=== PATIENT | female | born 1940 | race Caucasian/White ===

== ENCOUNTER → 2016-10-15 | Outpatient (CLI) | payer OTHER, BC ==
[2016-10-22 02:31] LABS: ANTI-STRIATED MUSCLE NEGATIVE (NEGATIVE); RECEPTOR BINDING AB <0.30 nmol/L
== END | disposition home or self-care (01) ==
LOC: C.LABBC 10:43
PROVIDERS: ATTEND Ophthalmology
DX: H02.402 Unspecified ptosis of left eyelid (principal)

== ENCOUNTER 2023-05-16 08:51 | Inpatient (IN) ==
--- NOTE | 2023-05-16 09:14 | Emergency Department Note ---
Impression & Plan SOB (shortness of breath), Tachycardia, Pneumonia, Failure of outpatient treatment ED Provider Note NAME: МАРИНА BAKER AGE: 82 SEX: F : 1940 ARRIVES VIA: Walk-In INFORMANT: [Patient][son] ED PROVIDER(S): [Alexis Madsen MD] CHIEF COMPLAINT: Flulike symptoms HISTORY OF PRESENT ILLNESS: The patient is a the patient is an 82-year-old female presents to the ER with around 10 days of symptoms. She began having chills, sneezing and cough. Midweek last week, several days ago, she developed an increased heart rate, some pounding in her ears, a temperature and a colored sputum. This morning, she vomited 1 time. The patient's son believes his mother seems short of breath with any exertion and at times somewhat confused. Patient did see her doctors office, she was prescribed Augmentin, she started taking this 3 days ago, she has not noticed any difference in her symptoms. PMHx/PSHx/Social Hx: See Below PHYSICAL EXAM: GENERAL: Patient is in no acute distress. HEENT: No acute trauma, normocephalic atraumatic, mucous membranes moist, no nasal congestion. NECK: No stridor, no adenopathy, no meningismus, trachea is midline. LUNGS: Occasional crackles at both bases, primarily on the right. No wheezing or respiratory distress. HEART: Subtle systolic murmur, mildly tachycardic, regular rhythm. ABDOMEN: Soft, nontender, no peritonitis. EXTREMITIES: No cyanosis, full range of motion of all the joints without pain or difficulty. Mild bilateral pedal edema. NEUROLOGIC: Oriented x 3, no acute motor or sensory deficits, no focal weakness. SKIN: No jaundice, no diaphoresis. DIFFERENTIAL DIAGNOSIS: Bronchitis or pneumonia, bacteremia or sepsis, viral illness, anemia, cardiac ischemia or dysrhythmia, among others. EMERGENCY DEPARTMENT PROCEDURES: MEDICAL DECISION MAKING: There is a moderate leukocytosis, this would be consistent with infection. There is a normal hemoglobin. Platelet count slightly elevated. No coagulopathy. No renal failure. Magnesium was low at 1.6. No concerning liver enzyme elevation. ECG showed a sinus tachycardia, no ischemia. Cardiac enzyme testing x 1 is not consistent with acute cardiac injury. COVID, influenza and RSV test were negative. Chest x-ray showed a potential right middle lung/lower lung infiltrate. No pneumothorax. Chest CT did not show PE, a left lingular pneumonia was seen. The patient received IV saline, 1 L in total. She was given IV magnesium and IV ceftriaxone. The patient's heart rate has improved. She seems more comfortable. I spoke with the patient about her findings, I spoke with her son. Given the leukocytosis, the failed outpatient management, her tachycardia and dyspnea, given her increased confusion, a hospital stay was felt warranted. I spoke with case management, the on-call hospitalist was consulted. Prior/Outside records/notes reviewed: None. ECG per my interpretation: Indication was shortness of breath. The ECG shows a sinus tachycardia with a rate of 113. There is some nonspecific ST change and some poor R wave progression. There is no ST elevation, no PVCs. The QTc is 441. Continuous Cardiac Monitoring per my interpretation: An order was placed for continuous cardiac monitoring. The monitor shows a rate of 119 with sinus tachycardia. Imaging/x-ray results per my interpretation: Chest x-ray shows scoliosis and a potential right mid to lower lung infiltrate. No pneumothorax or CHF. Chronic Medical/Social conditions affecting care: Advanced age. Care/Management discussed with: Case management, the on-call hospitalist. Level of care consideration(s): After review of the information above and other included data: --I believe the patient requires escalation of care to admission DISPOSITION: Admission Past Med/Surg History Medical History HTN (hypertension) Surgical History H/O thyroidectomy Social History Smoking Status: Never smoker Feels Safe at Home: Yes Allergies Allergies Allergy/AdvReac Type Severity Reaction Status Date / Time No Known Allergies Allergy Unverified 04/17/13 07:14 Results & Data (ED) Vital Signs Vital Signs - 24 hr 05/16/23 08:55 05/16/23 09:07 05/16/23 09:08 Temperature 36.5 C Temperature Source Temporal Artery Scan Pulse Rate 118 H 115 H 117 H Pulse Rate [Apical] Pulse Rate from SpO2 Sensor 115 H Respiratory Rate 20 19 Respiratory Effort / Characteristics Non-Labored Respiratory Depth Normal Respiratory Pattern Regular Blood Pressure 114/81 142/113 H Blood Pressure [Left Arm] Blood Pressure Mean 92 122 Blood Pressure Mean [Left Arm] Pulse Oximetry 94 94 Oxygen Delivery Method Room Air Sepsis Recent Fever Within 48 Hours No Sepsis New/Unexplained Change in Mental Status N/A Sepsis Action Taken by Nursing No Action Required 05/16/23 09:30 05/16/23 10:00 05/16/23 10:30 Temperature Temperature Source Pulse Rate 101 H 99 H 95 H Pulse Rate [Apical] Pulse Rate from SpO2 Sensor 102 H 98 H 95 H Respiratory Rate 20 19 25 H Respiratory Effort / Characteristics Respiratory Depth Respiratory Pattern Blood Pressure Blood Pressure [Left Arm] Blood Pressure Mean Blood Pressure Mean [Left Arm] Pulse Oximetry 93 97 96 Oxygen Delivery Method Sepsis Recent Fever Within 48 Hours Sepsis New/Unexplained Change in Mental Status Sepsis Action Taken by Nursing 05/16/23 11:00 05/16/23 11:41 Temperature Temperature Source Pulse Rate 93 H Pulse Rate [Apical] 101 H Pulse Rate from SpO2 Sensor 93 H Respiratory Rate 25 H 20 Respiratory Effort / Characteristics Respiratory Depth Respiratory Pattern Blood Pressure Blood Pressure [Left Arm] 126/65 Blood Pressure Mean Blood Pressure Mean [Left Arm] 85 Pulse Oximetry 93 97 Oxygen Delivery Method Sepsis Recent Fever Within 48 Hours Sepsis New/Unexplained Change in Mental Status Sepsis Action Taken by Long-Term Medications Current Medication List: was personally reviewed by me Laboratory Data Attestation: I reviewed the patient's lab results. 05/16/23 09:15 05/16/23 09:15 Lab Results 05/16/23 05/16/23 Range/Units 09:15 09:37 WBC 16.61 H (4.8-10.8) K/ul RBC 4.77 (4.20-5.40) M/uL Hgb 14.1 (12.0-16.0) g/dl Hct 41.8 (37.0-47.0) % MCV 87.6 (80.0-100.0) fL MCH 29.6 (25.0-34.0) pg MCHC 33.7 (32.0-36.0) g/dL RDW Std Deviation 42.9 (36.4-46.3) fL RDW Coeff of Pérez 13.3 (11.5-14.5) % Plt Count 431 H (130-400) K/uL MPV 10.9 (9.4-12.4) fL Immature Gran % (Auto) 1.0 % Neut % (Auto) 82.1 % Lymph % (Auto) 7.8 % [place] % (Auto) 8.3 % Eos % (Auto) 0.6 % Baso % (Auto) 0.2 % Neut # (Auto) 13.63 H (1.40-6.50) K/uL Lymph # (Auto) 1.30 (1.20-3.40) K/uL [place] # (Auto) 1.38 H (0.11-0.59) K/uL Eos # (Auto) 0.10 (0.00-0.50) K/uL Baso # (Auto) 0.04 (0.00-0.20) K/uL Immature Gran # (Auto) 0.16 (0.01-0.20) K/uL PT 10.6 (9.0-12.0) Seconds INR 1.0 (0.9-1.1) APTT 29 (21-31) Seconds PTT Ratio 1.0 Sodium 134 L (136-145) mmol/L Potassium 3.6 (3.5-5.1) mmol/L Chloride 97 L (98-107) mmol/L Carbon Dioxide 25 (21-32) mmol/L Anion Gap 12 H (3-11) BUN 18 (6-23) mg/dl Creatinine 0.96 (0.6-1.2) mg/dl Est Cr Clr Drug Dosing Not Reportable Est GFR ( Amer) 64.3 ml/min Est GFR (Non-Af Amer) 55.5 ml/min BUN/Creatinine Ratio 18.8 (10-20) Glucose 123 H (70-99(Fasting)) mg/dl Lactate 1.0 (0.4-2.0) mmol/L Calcium 10.3 (8.6-10.3) mg/dl Magnesium 1.6 L (1.7-2.4) mg/dl Total Bilirubin 0.5 (0.2-1.0) mg/dl AST 14 (13-39) U/L ALT 12 (7-52) U/L Alkaline Phosphatase 86 (34-104) U/L Troponin I High Sens 7.1 (0-14) pg/ml Total Protein 8.5 H (6.0-8.3) gm/dl Albumin 4.3 (3.4-5.0) gm/dl Globulin 4.2 H (2.5-4.0) gm/dl Albumin/Globulin Ratio 1.0 (0.9-2) SARS-CoV-2 (PCR) NEGATIVE (Negative) Influenza Type A (PCR) Negative (Neg) Influenza Type B (PCR) Negative (Neg) RSV (RT-PCR) Negative (Neg) Administered Medications Sodium Chloride (Nss) 350 mls @ 125 mls/hr IV .Q2H48M MANISH Stop: 06/15/23 14:59 Last Admin: 05/16/23 14:49 Dose: 125 mls/hr Documented By: HS Discontinued Medications Sodium Chloride (Nss) 500 mls @ 999 mls/hr IV .Q31M ONE Stop: 05/16/23 09:40 Last Infusion: 05/16/23 11:40 Dose: Infused Documented By: Admin: 05/16/23 09:29 Dose: 999 mls/hr Documented By: HS Magnesium Sulfate/Dextrose (Magnesium Sulfate / D5w) 1 gm in 100 mls @ 100 mls/hr IV NOW STA Stop: 05/16/23 11:05 Last Infusion: 05/16/23 11:40 Dose: Infused Documented By: Admin: 05/16/23 10:31 Dose: 100 mls/hr Documented By: HS Ceftriaxone Sodium (Rocephin) 2,000 mg in 50 mls @ 100 mls/hr IV NOW STA Stop: 05/16/23 12:05 Last Infusion: 05/16/23 12:28 Dose: Infused Documented By: Admin: 05/16/23 11:58 Dose: 100 mls/hr Documented By: HS Sodium Chloride (Nss) 500 mls @ 999 mls/hr IV .Q31M ONE Stop: 05/16/23 12:07 Last Infusion: 05/16/23 12:29 Dose: Infused Documented By: Admin: 05/16/23 11:58 Dose: 999 mls/hr Documented By: HS Parenteral Electrolytes (Plasma-Lyte A Ph 7.4) 350 mls @ 999 mls/hr IV .Q22M ONE Stop: 05/16/23 12:40 Last Admin: 05/16/23 14:38 Dose: Not Given Documented By: HS Ioversol (Optiray 320 125ml) 112 ml IV ONCE ONE Stop: 05/16/23 11:13 Last Admin: 05/16/23 11:12 Dose: 112 ml Documented By: PETER Imaging Data Radiologist's Impression: Chest X-Ray 05/16/23 09:01 XR chest 1V portable HISTORY: 82 years-old Female Dyspnea acute shortness of breath COMPARISON: None TECHNIQUE: AP view the chest FINDINGS: Cardiac silhouette is enlarged. Hypoinflation. Sigmoidal thoracolumbar scoliosis with abdominal surgical clips. No pneumothorax, large pleural effusion or overt pulmonary edema. Pulmonary vascular congestion with asymmetric right hilar prominence/opacity. IMPRESSION: 1. Limited exam secondary to hypoinflation, positioning and sigmoidal scoliosis. 2. Cardiomegaly with suggested pulmonary vascular congestion. 3. Asymmetric right hilar prominence which may be secondary to summation density however should be correlated with follow-up PA and lateral views of the chest. ACT 112: Negative or not required by law. The above report was generated using voice recognition software. It may contain grammatical, syntax or spelling errors. Electronically signed by: Chente Quintero M.D. 05/16/2023 9:27 AM Chest CTA 05/16/23 09:26 CHEST CTA for PULMONARY ARTERIES CT DOSE: 384.24 mGy.cm HISTORY: Shortness of breath. TECHNIQUE: Multiaxial CT images of the chest were performed following the intravenous administration of contrast to evaluate the pulmonary arteries. 3D/Maximal intensity projection images were also obtained. Sagittal and coronal reformations were also reviewed. A dose lowering technique was utilized adhering to the principles of ALARA. COMPARISON STUDY: Chest 05/16/2023. FINDINGS: Severe S-shaped scoliosis of the thoracolumbar spine. No acute fractures identified. No mediastinal or hilar lymphadenopathy. Normal caliber esophagus. No pleural effusions. Trace pericardial effusion. The heart is mildly enlarged. Limited views the upper abdomen demonstrate a normal spleen and right adrenal gland. A 1 cm left adrenal gland nodule which favors a benign adenoma. This is only partially imaged on this study. Prior cholecystectomy. This likely accounts for the mild intrahepatic bile duct dilatation. There is a mildly tortuous thoracic aorta with no evidence for dissection. No filling defects within the pulmonary arteries to suggest a pulmonary embolus. No pneumothorax. The central airways are patent. Patchy and nodular densities within the lingula. This likely represents a pneumonia. Bibasilar linear densities favor subsegmental atelectasis or scarring. IMPRESSION: 1. No evidence for a pulmonary embolus. 2. Mild cardiomegaly and a trace pericardial effusion. 3. Patchy and nodular densities within the lingula. This most likely represents a pneumonia. 4. Severe S-shaped scoliosis of the thoracolumbar spine. ACT 112: Negative or not required by law. Electronically signed by: Lennox Garcia M.D. 05/16/2023 11:30 AM Discharge Plan Visit Data Chief Complaint: Flu Like Symptoms Stated Complaint: FLU LIKE SYMPTOMS/SEVERE SCOLIOSIS ED Provider: Alexis Madsen Discharge Problem: SOB (shortness of breath), Tachycardia, Pneumonia, Failure of outpatient treatment Patient Disposition: Admitted As Inpatient Condition: Fair Discharge Problem: Pneumonia Qualifiers: Pneumonia type: due to unspecified organism Laterality: left Lung location: u nspecified part of lung Qualified Code(s): J18.9 - Pneumonia, unspecified organism
[2023-05-16] MEDS: SODIUM CHLORIDE 0.9% 500 ML IV ONE ×2 (09:29→11:58)
--- NOTE | 2023-05-16 09:30 | XRay Report ---
XR chest 1V portable HISTORY: 82 years-old Female Dyspnea acute shortness of breath COMPARISON: None TECHNIQUE: AP view the chest FINDINGS: Cardiac silhouette is enlarged. Hypoinflation. Sigmoidal thoracolumbar scoliosis with abdominal surgi avani clips. No pneumothorax, large pleural effusion or overt pulmonary edema. Pulmonary vascular conge stion with asymmetric right hilar prominence/opacity. IMPRESSION: 1. Limited exam secondary to hypoinflation, positioning and sigmoidal scoliosis. 2. Cardiomegaly with suggested pulmonary vascular congestion. 3. Asymmetric right hilar prominence which may be secondary to summation density however should be co rrelated with follow-up PA and lateral views of the chest. ACT 112: Negative or not required by law. The above report was generated using voice recognition software. It may contain grammatical, syntax o r spelling errors. Electronically signed by: Chente Quintero M.D. 05/16/2023 9:27 AM
[2023-05-16 09:48] LABS: Basophils # (auto) 0.04 K/uL (0.00-0.20); Basophils % (auto) 0.2 %; Eosinophils % (auto) 0.6 %; Hematocrit (blood only) 41.8 % (37.0-47.0); Hemoglobin 14.1 g/dl (12.0-16.0); Immature Granulocytes # (auto) 0.16 K/uL (0.01-0.20); Lymphocytes % (auto) 7.8 %; Mean Corpuscular Hemoglobin 29.6 pg (25.0-34.0); Mean Corpuscular Hgb Conc 33.7 g/dL (32.0-36.0); Mean Corpuscular Volume 87.6 fL (80.0-100.0); Mean Platelet Volume 10.9 fL (9.4-12.4); Monocytes # (auto) 1.38 K/uL (0.11-0.59); Monocytes % (auto) 8.3 %; Neutrophils # (auto) 13.63 K/uL (1.40-6.50); Neutrophils % (auto) 82.1 %; Platelet Count 431 K/uL (130-400); RDW Coefficient of Variation 13.3 % (11.5-14.5); RDW Standard Deviation 42.9 fL (36.4-46.3); Red Blood Count 4.77 M/uL (4.20-5.40); White Blood Count 16.61 K/ul (4.8-10.8)
[2023-05-16 10:04] LABS: Alanine Aminotransferase 12 U/L (7-52); Albumin Level 4.3 gm/dl (3.4-5.0); Alkaline Phosphatase 86 U/L (34-104); Anion Gap 12 (3-11); Aspartate Aminotransferase 14 U/L (13-39); BUN Creatinine Ratio 18.8 (10-20); Bilirubin,Total 0.5 mg/dl (0.2-1.0); Blood Urea Nitrogen 18 mg/dl (6-23); Calcium 10.3 mg/dl (8.6-10.3); Carbon Dioxide 25 mmol/L (21-32); Chloride 97 mmol/L (98-107); Est GFR (African American) 64.3 ml/min; Est GFR (Non-African American) 55.5 ml/min; Globulin 4.2 gm/dl (2.5-4.0); Glucose 123 mg/dl (70-99(Fasting)); Magnesium 1.6 mg/dl (1.7-2.4); Potassium 3.6 mmol/L (3.5-5.1); Sodium 134 mmol/L (136-145); Total Protein 8.5 gm/dl (6.0-8.3)
[2023-05-16 10:08] LABS: Influenza A virus by PCR Negative (Neg); Influenza B virus by PCR Negative (Neg); RSV by PCR Negative (Neg); SARS CoV2 RNA(COVID-19) Ceph NEGATIVE (Negative)
[2023-05-16 10:10] LABS: Troponin I High Sensitivity 7.1 pg/ml (0-14)
[2023-05-16 10:24] LABS: Partial Thromboplastin Time 29 Seconds (21-31); Prothrombin Time 10.6 Seconds (9.0-12.0)
[2023-05-16] MEDS: MAGNESIUM SULFATE / D5W 1 GM/100 ML BAG IV STA (10:31)
--- NOTE | 2023-05-16 11:03 | Electrocardiogram Report ---
Test Reason : Blood Pressure : / mmHG Vent. Rate : 113 BPM Atrial Rate : 113 BPM P-R Int : 172 ms QRS Dur : 074 ms QT Int : 322 ms P-R-T Axes : 036 007 013 degrees QTc Int : 441 ms Sinus tachycardia Low voltage QRS Abnormal ECG No previous ECGs available Confirmed by Darell Mclean ([id number]) on 05/16/2023 11:03:21 AM Referred By: REFERRED SELF Confirmed By:Wiliam Mclean
[2023-05-16] MEDS: OPTIRAY 320 125ml IV ONE (11:12)
--- NOTE | 2023-05-16 11:32 | CT Scan Report ---
CHEST CTA for PULMONARY ARTERIES CT DOSE: 384.24 mGy.cm HISTORY: Shortness of breath. TECHNIQUE: Multiaxial CT images of the chest were performed following the intravenous administration of contrast to evaluate the pulmonary arteries. 3D/Maximal intensity projection images were also obta ined. Sagittal and coronal reformations were also reviewed. A dose lowering technique was utilized a dhering to the principles of ALARA. COMPARISON STUDY: Chest 05/16/2023. FINDINGS: Severe S-shaped scoliosis of the thoracolumbar spine. No acute fractures identified. No med iastinal or hilar lymphadenopathy. Normal caliber esophagus. No pleural effusions. Trace pericardial effusion. The heart is mildly enlarged. Limited views the upper abdomen demonstrate a normal spleen a nd right adrenal gland. A 1 cm left adrenal gland nodule which favors a benign adenoma. This is only partially imaged on this study. Prior cholecystectomy. This likely accounts for the mild intrahepatic bile duct dilatation. There is a mildly tortuous thoracic aorta with no evidence for dissection. No filling defects within the pulmonary arteries to suggest a pulmonary embolus. No pneumothorax. The ce ntral airways are patent. Patchy and nodular densities within the lingula. This likely represents a p neumonia. Bibasilar linear densities favor subsegmental atelectasis or scarring. IMPRESSION: 1. No evidence for a pulmonary embolus. 2. Mild cardiomegaly and a trace pericardial effusion. 3. Patchy and nodular densities within the lingula. This most likely represents a pneumonia. 4. Severe S-shaped scoliosis of the thoracolumbar spine. ACT 112: Negative or not required by law. Electronically signed by: Lennox Garcia M.D. 05/16/2023 11:30 AM
[2023-05-16] MEDS: cefTRIAXone SODIUM 2,000 MG/50 ML BAG IV STA (11:58)
--- NOTE | 2023-05-16 12:19 | History & Physical Report ---
Date of Service May 16, 2023 Assessment & Plan (1) CAP (community acquired pneumonia): Plan: CAP 2 weeks of initial viral prodrome with sudden worsening, fever, sputum change, and yellow sputum production approximately 1 week later consistent with secondary bacterial pneumonia - Tachypneic, tachycardic, with leukocytosis. Meets SIRS criteria. BC drawn. PCT pending. - IBW 30cc/kg --> 1350cc. She has received 1 L crystalloid resuscitation at time of consultation. Remaining 350 cc Plasma-Lyte ordered to complete fluid recommendations Lactate is not elevated - Quad screen negative No evidence of PE on CTA. Findings consistent with lingular pneumonia are present, also shows trace pericardial effusion and mild cardiomegaly Moderate borderline high curb 65 risk based on age, confusion, and borderline BUN Patient is not hypoxic on admission Patient received Rocephin in ER. Patient is nontoxic and appears hemodynamically stable at reassessment; continued on Rocephin/Doxy on admission. MRSA nare is pending. (2) HTN (hypertension): Plan: Hypertension Patient reports is well-controlled on lisinopril, amlodipine, and hydrochlorothiazide. Takes amlodipine 10 mg a.m., amlodipine 5 mg at bedtime, and hydrochlorothiazide 25 mg in the morning. She did not take any antihypertensives today, is currently normotensive. (3) H/O thyroidectomy: Plan: Hypothyroidism S/p thyroidectomy and subsequent hypothyroidism. Synthroid 88 mcg daily continued (4) Pericardial effusion: Plan: Trace pericardial effusion Noted on CTA. Without chest pain. ?viral with initial prodrome. No signs of pericardial tamponade. No symptoms of pericarditis. trop wnl. EKG without acute icschemic findings. Echo pending, supportive care at this time Plan Denies history of renal and cardiac disease DVT prophylaxis: Lovenox Disposition: Medical/surgical CODE STATUS: DNR/DNI Diet: Regular History of Present Illness Primary Care Provider: Minesh Narvaez MD Toby is an 82-year-old female with past medical history of hypertension on amlodipine/lisinopril/hydrochlorothiazide, hypothyroidism on Synthroid 88 mcg who presents to the ER with 10 days of chills, cough, congestion, tachycardia, fevers, and increased sputum production. She has been intermittently confused and short of breath on exertion. She was seen as an outpatient and prescribed Augmentin which she has been taking for 3 days without any improvement in symptoms. Curb 65 moderate risk due to age and confusion, borderline high risk based on BUN. He is recommended for inpatient management of and pneumonia. 2 weeks ago started to have fever and intermittent chills. No temperature, but felt feverish. Sputum was initially clear, but of this past week she started to feel much worse. Originally thought she just had a cold, but on had a temp of 100*F, HR increased to 110s, and her sputum changed to a thick yellow color and her cough increased. Sinus congestion also worsened significatnly. Per family when initially feeling poorly had some confusion, this has improved at time of admitting assessment No chest pain or chest pressure No nausea or vomiting Went ot [facility] on Tuesday and started Augmentin, but has felt no better on this just made her stools a little loose. Not liquid, jsut loose. No blood/melena No appetite Was wheezing 2 weeks ago, wheezing has actually stopped. Feels more coarse congestion. Medical History: Reviewed Medications: Reviewed. On lisinopril 10mg daily, amlodipine 5mg daily (takes amlodipine HS and lisinopril AM) + KCL 20meq BID. She took synthroid this morning, no other meds this AM. Hctz 25 in the morning. Surgical History: Reviewed Family history: Reviewed Allergies: Reviewed. NKDA. Social History: Reviewed. No tobacco Code Status: DNR/DNI Allergies Allergy/AdvReac Type Severity Reaction Status Date / Time No Known Allergies Allergy Unverified 04/17/13 07:14 Past Med/Surg History Medical History HTN (hypertension) Surgical History H/O thyroidectomy Social History Smoking Status: Never smoker Feels Safe at Home: Yes Physical Exam Physical Exam: General: A&Ox3. NAD. Cooperative. HEENT: Atraumatic, normocephalic. Vision/hearing grossly intact. Slightly [place]. PERLAA. Pulm: Diminished, grossly CTAB A&P. -wheezes, -rales, -rhonchi. Symmetrical chest rise. No increased work of breathing. No respiratory distress. Cardiac: Regular mild tachycardia, -mrg. Radial pulses intact and symmetrical. Abdominal: Nontender, nondistended, soft. BS present. Ext: warm, dry/. Results & Data Results & Data Vital Signs (Past 12 Hours) Vital Signs Temp Pulse Pulse Resp BP BP Pulse Ox 05/16/23 11:41 101 H 20 126/65 97 05/16/23 11:00 93 H 25 H 93 05/16/23 10:30 95 H 25 H 96 05/16/23 10:00 99 H 19 97 05/16/23 09:30 101 H 20 93 05/16/23 09:08 117 H 05/16/23 09:07 115 H 19 142/113 H 94 05/16/23 08:55 36.5 C 118 H 20 114/81 94 O2 Del Method 05/16/23 11:41 05/16/23 11:00 05/16/23 10:30 05/16/23 10:00 05/16/23 09:30 05/16/23 09:08 05/16/23 09:07 05/16/23 08:55 Room Air PG Care Time/CCT Total # of Minutes Spent Total Time Spent with Patient: Total time spent is greater than 50% in coordination of care (as documented) at patient's floor/unit and/or counseling patient: Coding Level of Care Code 51810 INT INP/OBS CARE 3/75MIN Diagnoses CAP (community acquired pneumonia) J18.9 HTN (hypertension) I10 H/O thyroidectomy E89.0 Pericardial effusion I31.39
[2023-05-16] MEDS: PLASMA LYTE A IV ONE (14:38)
[2023-05-16] MEDS: SODIUM CHLORIDE 0.9% 350 ML IV SCH (14:49)
[2023-05-16] MEDS ORDERED: ACETAMINOPHEN 325 MG TAB PO PRN (15:35)
[2023-05-16] MEDS ORDERED: POLYETHYLENE (MIRALAX) 17 GM PACK PO PRN (15:35)
[2023-05-16] MEDS: DOXYCYCLINE HYCLATE 100 MG in DEXTROSE 5% MINI-B 100 ML IV SCH (16:57)
[2023-05-16] MEDS: ENOXAPARIN INJ 40 MG/0.4 ML SYR SQ SCH (17:21)
[2023-05-16] MEDS: lisinopril 10 MG TAB PO SCH (17:21)
[2023-05-16] MEDS: MAGNESIUM OXIDE 400 MG TAB PO SCH (17:22)
[2023-05-16] MEDS: POTASSIUM CHLORIDE CRTAB 20 MEQ TABCR PO SCH (21:05)
[2023-05-17] MEDS: LEVOTHYROXINE SODIUM 88 MCG TABLET PO SCH (05:33)
[2023-05-17 07:18] LABS: Basophils # (auto) 0.04 K/uL (0.00-0.20); Basophils % (auto) 0.4 %; Eosinophils % (auto) 0.9 %; Hematocrit (blood only) 35.3 % (37.0-47.0); Hemoglobin 11.6 g/dl (12.0-16.0); Immature Granulocytes # (auto) 0.07 K/uL (0.01-0.20); Immature Granulocytes % (auto) 0.6 %; Lymphocytes # (auto) 1.47 K/uL (1.20-3.40); Lymphocytes % (auto) 13.1 %; Mean Corpuscular Hemoglobin 29.1 pg (25.0-34.0); Mean Corpuscular Hgb Conc 32.9 g/dL (32.0-36.0); Mean Corpuscular Volume 88.7 fL (80.0-100.0); Mean Platelet Volume 10.4 fL (9.4-12.4); Monocytes # (auto) 1.06 K/uL (0.11-0.59); Monocytes % (auto) 9.4 %; Neutrophils # (auto) 8.48 K/uL (1.40-6.50); Neutrophils % (auto) 75.6 %; Platelet Count 350 K/uL (130-400); RDW Coefficient of Variation 13.2 % (11.5-14.5); RDW Standard Deviation 43.6 fL (36.4-46.3); Red Blood Count 3.98 M/uL (4.20-5.40); White Blood Count 11.22 K/ul (4.8-10.8)
[2023-05-17 07:27] LABS: BUN Creatinine Ratio 18.8 (10-20); Calcium 8.8 mg/dl (8.6-10.3); Creatinine Clr Calc Pharmacy 43.5 ml/min; Est GFR (African American) 74.5 ml/min; Est GFR (Non-African American) 64.3 ml/min; Potassium 3.9 mmol/L (3.5-5.1)
[2023-05-17] MEDS: hydroCHLOROthiazide 25 MG TAB PO SCH (08:35)
--- NOTE | 2023-05-17 12:53 | Hospitalist Progress Note ---
Date of Service May 17, 2023 Assessment & Plan (1) CAP (community acquired pneumonia): Plan: Infiltrate noted in the lingula on imaging. Productive cough noted. No hemoptysis. Sputum culture is pending. She remains on Rocephin and doxycycline, day 2. Chest CTA on admission negative for PE. Hopefully she can go home tomorrow, May 18. She took 3 days of Augmentin prior to this admission which apparently failed. (2) HTN (hypertension): Plan: Stable. Continue current medical management (3) H/O thyroidectomy: Plan: Stable. 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 Asymptomatic. No further investigation warranted Plan Hopeful discharge to home tomorrow, May 18, on an oral antibiotic Admission and Anticipated Discharge Date Admission Date: May 16, 2023 Subjective Alert and oriented. No distress. She is on room air. Will continue Rocephin and doxycycline today, currently day 2. Hopefully she can go home tomorrow, May 18, on oral antibiotic. Sputum culture has been obtained and is pending Review of Systems 2 Review of Systems: Constitutional-no fever or chills ENT-no blurred vision, no double vision, no epistaxis, no sore throat Respiratory-productive cough. No shortness of breath at rest. No wheezing. No hemoptysis Cardiac-no palpitations, no chest pain, no syncope GI-no nausea, vomiting, diarrhea, melena, hematochezia -no urinary retention, no urinary incontinence, no dysuria, no hematuria Musculoskeletal-no joint pain, no muscle tenderness Skin-no bruising, no rashes, no pruritus Neuro-no isolated weakness, no paresthesia, no weakness Psych-no depression, no anxiety Physical Exam 2 Physical Exam: General-alert and oriented x3, no fevers, no chills HEENT-head atraumatic and normocephalic, pupils equal and reactive to light, extraocular muscles intact Neck-no lymphadenopathy or thyromegaly, trachea midline Chest-diminished breath sounds bilaterally. Midline rhonchi. No wheezing. No dullness. Cardiac-regular rate and rhythm, normal S1 and S2 Abdomen-normal bowel sounds, nontender, no hepatosplenomegaly Extremities-no cyanosis, clubbing, or edema Musculoskeletalsevere spinal scoliosis noted Neuro-cranial nerves II through XII intact, motor and sensory function within normal limits, strength symmetrical, no focal deficits Psych-normal affect, normal mood Results & Data Results & Data Vital Signs (Past 12 Hours) Vital Signs Temp Pulse Resp BP Pulse Ox O2 Del Method 05/17/23 07:46 36.8 C 81 16 115/71 92 Room Air 05/17/23 07:20 Room Air Laboratory Results 05/17/23 06:23 05/17/23 06:23 PG Care Time/CCT Total # of Minutes Spent Total Time Spent with Patient: Total time spent is greater than 50% in coordination of care (as documented) at patient's floor/unit and/or counseling patient: Coding Level of Care Code 06050 SUB INP/OBS CARE 3/50MIN Diagnoses CAP (community acquired pneumonia) J18.9 HTN (hypertension) I10 H/O thyroidectomy E89.0 Pericardial effusion I31.39
[2023-05-17] MEDS: cefTRIAXone SODIUM 2,000 MG in DEXTROSE 5 % MINI-B 50 ML IV SCH (13:27)
--- NOTE | 2023-05-17 15:54 | XCELERA ---
[id number]
[2023-05-17] MEDS: amLODIPine BESYLATE 5 MG TAB PO SCH (20:04)
[2023-05-18 08:03] LABS: Basophils # (auto) 0.05 K/uL (0.00-0.20); Basophils % (auto) 0.5 %; Eosinophils # (auto) 0.24 K/uL (0.00-0.50); Eosinophils % (auto) 2.4 %; Hematocrit (blood only) 37.5 % (37.0-47.0); Hemoglobin 12.3 g/dl (12.0-16.0); Lymphocytes # (auto) 1.55 K/uL (1.20-3.40); Lymphocytes % (auto) 15.6 %; Mean Corpuscular Hemoglobin 29.1 pg (25.0-34.0); Mean Corpuscular Hgb Conc 32.8 g/dL (32.0-36.0); Mean Corpuscular Volume 88.7 fL (80.0-100.0); Mean Platelet Volume 10.1 fL (9.4-12.4); Monocytes # (auto) 1.03 K/uL (0.11-0.59); Monocytes % (auto) 10.4 %; Neutrophils # (auto) 6.97 K/uL (1.40-6.50); Neutrophils % (auto) 70.1 %; Platelet Count 401 K/uL (130-400); RDW Coefficient of Variation 13.2 % (11.5-14.5); Red Blood Count 4.23 M/uL (4.20-5.40); White Blood Count 9.94 K/ul (4.8-10.8)
[2023-05-18 08:11] LABS: BUN Creatinine Ratio 23.3 (10-20); Calcium 8.9 mg/dl (8.6-10.3); Creatinine Clr Calc Pharmacy 41.1 ml/min; Est GFR (African American) 69.5 ml/min
--- NOTE | 2023-05-18 12:14 | Discharge Summary ---
Date of Service May 18, 2023 Admission HPI Per Admitting Provider Toby is an 82-year-old female with past medical history of hypertension on amlodipine/lisinopril/hydrochlorothiazide, hypothyroidism on Synthroid 88 mcg who presents to the ER with 10 days of chills, cough, congestion, tachycardia, fevers, and increased sputum production. She has been intermittently confused and short of breath on exertion. She was seen as an outpatient and prescribed Augmentin which she has been taking for 3 days without any improvement in symptoms. Curb 65 moderate risk due to age and confusion, borderline high risk based on BUN. He is recommended for inpatient management of and pneumonia. 2 weeks ago started to have fever and intermittent chills. No temperature, but felt feverish. Sputum was initially clear, but of this past week she started to feel much worse. Originally thought she just had a cold, but on had a temp of 100*F, HR increased to 110s, and her sputum changed to a thick yellow color and her cough increased. Sinus congestion also worsened significatnly. Per family when initially feeling poorly had some confusion, this has improved at time of admitting assessment No chest pain or chest pressure No nausea or vomiting Went ot [facility] on Tuesday and started Augmentin, but has felt no better on this just made her stools a little loose. Not liquid, jsut loose. No blood/melena No appetite Was wheezing 2 weeks ago, wheezing has actually stopped. Feels more coarse congestion. Medical History: Reviewed Medications: Reviewed. On lisinopril 10mg daily, amlodipine 5mg daily (takes amlodipine HS and lisinopril AM) + KCL 20meq BID. She took synthroid this morning, no other meds this AM. Hctz 25 in the morning. Surgical History: Reviewed Family history: Reviewed Allergies: Reviewed. NKDA. Social History: Reviewed. No tobacco Code Status: DNR/DNI Principal Diagnosis Community-acquired lingular pneumonia, SIRS Discharge Exam General-alert and oriented x3, no fevers, no chills HEENT-head atraumatic and normocephalic, pupils equal and reactive to light, extraocular muscles intact Neck-no lymphadenopathy or thyromegaly, trachea midline Chest-diminished breath sounds bilaterally. Midline rhonchi. No wheezing. No dullness. Cardiac-regular rate and rhythm, normal S1 and S2 Abdomen-normal bowel sounds, nontender, no hepatosplenomegaly Extremities-no cyanosis, clubbing, or edema Musculoskeletalsevere spinal scoliosis noted Neuro-cranial nerves II through XII intact, motor and sensory function within normal limits, strength symmetrical, no focal deficits Psych-normal affect, normal mood Discharge Data Allergies Allergy/AdvReac Type Severity Reaction Status Date / Time No Known Allergies Allergy Unverified 04/17/13 07:14 Consultations 05/16/23 12:07 ED Decision to Admit Stat Ordered Studies 05/16/23 09:26 CT angio chest PE protocol Stat Hospital Course (1) CAP (community acquired pneumonia): Infiltrate noted in the lingula on imaging. Productive cough noted. No hemoptysis. Sputum culture nondiagnostic. Treated while hospitalized with Rocephin and doxycycline, day 3. Chest CTA on admission negative for PE. Home today, May 18, on doxycycline. She took 3 days of Augmentin prior to this admission which apparently failed. (2) HTN (hypertension): Stable. Continue current medical management (3) H/O thyroidectomy: Stable. 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 Asymptomatic. No further investigation warranted Plan Home today, May 18, on doxycycline for 1 more week Total Time Total Time Spent Total Time Spent (In Minutes): 45-minute Discharge Plan Discharge Items Patient Disposition: Home - Self-Care Reason For Visit: FLU LIKE SYMPTOMS/SEVERE SCOLIOSIS Discharge Diagnosis: Community-acquired left lingular pneumonia Condition on Discharge: Good Activity: Resume your previous activity Non-emergency contact: Primary Care Provider Call non-emergency contact if: your symptoms worsen Follow-up/Referrals: Minesh Narvaez MD [Primary Care Provider] - Diet: Regular Addtl Attending Provider Instructions: Take doxycycline for 1 week Pending Studies at Discharge: No Stand-Alone Forms: My Twitter, Smoking Cessation Medications and DC Order Prescriptions: New doxycycline hyclate 100 mg capsule 100 mg PO BID 7 Days Qty: 14 0RF amlodipine [Norvasc] 5 mg Tablet 5 mg PO HS Qty: 0 0RF levothyroxine [Synthroid] 88 mcg Tablet 88 mcg PO DAILYBB Qty: 0 0RF lisinopril 10 mg Tablet 10 mg PO QAM Qty: 0 0RF magnesium oxide 400 mg (241.3 mg magnesium) Tablet 400 mg PO DAILY Qty: 0 0RF potassium chloride 20 mEq Tablet,Er Particles/Crystals 20 meq PO BID Qty: 0 0RF hydrochlorothiazide 25 mg Tablet 25 mg PO QAM Qty: 0 0RF Discharge Orders: Discharge Order (Routine); Ordered 05/18/23 Ordered By: Sergey Soriano Admission Data Admit Date/Time: 05/16/23 12:50 Attending Provider: Sergey Soriano Admit Provider: Brad Nicole Primary Care Provider: Minesh Narvaez Other Providers: Brad Nicole Coding Level of Care Code 69252 INP/OBS DISCH >30 MIN Diagnoses CAP (community acquired pneumonia) J18.9 HTN (hypertension) I10 H/O thyroidectomy E89.0 Pericardial effusion I31.39
== END 2023-05-18 13:46 | disposition home or self-care (01) | DRG 195 ==
LOC: ED 08:51 → SUATTDRO 12:50 → EDINP 12:50 → 3W 15:36

== ENCOUNTER 2025-03-23 10:57 | Observation (INO) ==
[2025-03-23 12:08] LABS: Hematocrit (blood only) 44.7 % (37.0-47.0); Hemoglobin 15.3 g/dL (12.0-16.0); Immature Granulocytes # (auto) 0.04 K/uL (0.01-0.20); Immature Granulocytes % (auto) 0.4 %; Mean Corpuscular Hemoglobin 29.3 pg (25.0-34.0); Mean Corpuscular Volume 85.5 fL (80.0-100.0); Platelet Count 354 K/uL (130-400); RDW Standard Deviation 42.0 fL (36.4-46.3); Red Blood Count 5.23 M/uL (4.20-5.40); White Blood Count 9.87 K/ul (4.8-10.8)
[2025-03-23 12:25] LABS: Alanine Aminotransferase 9 U/L (7-52); Albumin Globulin Ratio 1.2 (0.9-2); Albumin Level 4.0 gm/dl (3.4-5.0); Alkaline Phosphatase 64 U/L (34-104); Anion Gap 15 (3-11); Bilirubin,Total 0.6 mg/dl (0.2-1.0); Blood Urea Nitrogen 24 mg/dl (6-23); Calcium 9.6 mg/dl (8.6-10.3); Carbon Dioxide 26 mmol/L (21-32); Chloride 96 mmol/L (98-107); Globulin 3.3 gm/dl (2.5-4.0); Glucose 128 mg/dl (70-99(Fasting)); Potassium 3.1 mmol/L (3.5-5.1); Sodium 137 mmol/L (136-145); Total Protein 7.3 gm/dl (6.0-8.3)
[2025-03-23] MEDS: SODIUM CHLORIDE 0.9% 500 ML IV ONE (12:31)
[2025-03-23] MEDS: ONDANSETRON INJ 2 MG/ML 2 ML VIAL IV STA (12:31)
[2025-03-23] MEDS: POTASSIUM CHLORIDE / WTR 10 MEQ/100 ML PLCT IV ONE ×2 (12:32→17:22)
--- NOTE | 2025-03-23 12:32 | Emergency Department Note ---
History of Present Illness General Chief complaint: Illness Stated complaint: CAN'T EAT, VOMITING, CAN'T TAKE MEDS, RAPID HEART Time Seen by Provider: 03/23/25 12:13 History of Present Illness This is an 84-year-old female who presents to the emergency department via private vehicle with complaints of "unable to eat, vomiting, abdominal pain". The patient notes that on March 20 in the afternoon time she began with abdominal discomfort, vomiting. She notes inability to tolerate oral food or fluids at this time due to significant nausea. She has had a hard time taking her medicines as well. She notes that she was seen here in the ED the evening of her symptoms and felt better after the Zofran and fluids but since discharge notes progression of symptoms. She denies any fever. No chest pain. No dyspnea. Home Medications Medication Instructions Recorded Confirmed Type amlodipine 5 mg tablet (Norvasc) 5 mg PO HS #0 tabs 05/18/23 03/23/25 Rx hydrochlorothiazide 25 mg tablet 25 mg PO QAM #0 tabs 05/18/23 03/23/25 Rx lisinopril 10 mg tablet 10 mg PO QAM #0 tabs 05/18/23 03/23/25 Rx potassium chloride 20 mEq 20 meq PO BID #0 tabs 05/18/23 03/23/25 Rx tablet,extended release(part/cryst) brimonidine 0.2 % eye drops 1 drp OPL TID 08/03/24 03/23/25 History dorzolamide-timolol (PF) 2 %-0.5 % 1 drp OPL BID 08/03/24 03/23/25 History eye drops in a dropperette aspirin 81 mg tablet,delayed 81 mg PO DAILY 03/20/25 03/23/25 History release cholecalciferol (vitamin D3) 25 25 mcg PO DAILY 03/20/25 03/23/25 History mcg (1,000 unit) capsule (Vitamin D3) levothyroxine 88 mcg tablet 88 mcg PO [id number] 03/20/25 03/23/25 History (Synthroid) Allergies Allergy/AdvReac Type Severity Reaction Status Date / Time No Known Allergies Allergy Verified 03/20/25 23:21 Past Med/Surg History Problem List (Updated 03/23/25 @ 17:00 by Marc Booth PA-C) Partial small bowel obstruction (Acute) Intractable nausea (Acute) Dehydration (Acute) Vomiting (Acute) Failure of outpatient treatment (Acute) Pneumonia (Acute) Medical History HTN (hypertension) Surgical History H/O thyroidectomy Social History Smoking Status: Never smoker Second Hand Exposure: No; Do You Dip or Chew Tobacco: No; Hx Alcohol Use: No Hx Substance Use: No Preferred Language: Swedish Communication Ability: Effective 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 Beliefs That Will Affect Care: None Current Living Situation: Alone Feels Safe at Home: Yes Assistive Devices: None Review of Systems A total of 10 systems reviewed and were otherwise negative Physical Exam Vital Signs Vital Signs - 24 hr 03/23/25 11:23 03/23/25 12:12 03/23/25 12:21 Temperature 36.8 C Temperature Source Temporal Artery Scan Pulse Rate 112 H Pulse Rate [Apical] 78 103 H Pulse Rhythm [Apical] Regular Regular Pulse Strength [Apical] Normal Normal Respiratory Rate 20 16 18 Respiratory Effort / Characteristics Non-Labored Spontaneous Non-Labored Spontaneous Respiratory Depth Normal Normal Respiratory Pattern Regular Regular Blood Pressure 152/83 H Blood Pressure [Right Arm] 116/74 116/71 Blood Pressure Mean 106 Blood Pressure Mean [Right Arm] 88 86 Pulse Oximetry 94 98 97 Oxygen Delivery Method Room Air Room Air Sepsis Recent Fever Within 48 Hours No Sepsis New/Unexplained Change in Mental Status N/A Sepsis Action Taken by Nursing No Action Required VITAL SIGNS - Vital signs and nursing notes were reviewed. Stable and afebrile. GENERAL - 84-year-old female appearing her stated age who is in no acute distress. Communicates well with provider and answers questions appropriately. SKIN - Without rashes. HEAD - NC/AT. EYES - Sclera anicteric. NECK - Neck with FROM. No nuchal rigidity. LUNGS - CTA CARDIAC - RRR ABDOMEN - Abdominal contour normal without pulsations or visible masses. BS normoactive all four quadrants. Mild mid abdominal tenderness palpation without guarding or rigidity. No palpable masses, hepatosplenomegaly, or ascites noted. EXTREMITIES - No clubbing or peripheral cyanosis. +5/5 strength noted in UE/LE bilaterally. NEUROLOGIC - Cranial nerves II through XII grossly intact. PSYCH -alert, oriented and pleasant on exam Course Administered Medications Lactated Ringer's (Lr) 1,000 mls @ 80 mls/hr IV .[id number] MANISH Stop: 03/26/25 15:06 Last Admin: 03/23/25 16:03 Dose: 80 mls/hr Documented By: GAVIN Pantoprazole Sodium (Protonix) 40 mg in 10 mls @ 5 mls/min IV DAILY MANISH Stop: 04/22/25 15:06 Last Admin: 03/23/25 16:07 Dose: 5 mls/min Documented By: GAVIN Ondansetron HCl (Ondansetron Inj 2 Mg/Ml 2 Ml Vial) 4 mg IV Q6H PRN PRN Reason: Nausea And Vomiting Stop: 04/22/25 15:06 Last Admin: 03/23/25 15:40 Dose: 4 mg Documented By: GAVIN Discontinued Medications Sodium Chloride (Nss) 500 mls @ 500 mls/hr IV .Q1H ONE Stop: 03/23/25 13:21 Last Infusion: 03/23/25 13:26 Dose: Infused Documented By: nrs Admin: 03/23/25 12:31 Dose: 500 mls/hr Documented By: nrs Potassium Chloride (K Julián / Wtr) 10 meq in 100 mls @ 100 mls/hr IV ONE ONE Stop: 03/23/25 13:26 Last Infusion: 03/23/25 14:50 Dose: Infused Documented By: Admin: 03/23/25 12:32 Dose: 100 mls/hr Documented By: nrs Ioversol (Optiray 320 100ml) 94 ml IV ONCE ONE Stop: 03/23/25 13:09 Last Admin: 03/23/25 13:08 Dose: 94 ml Documented By: JAR Levothyroxine Sodium (Levothyroxine Sodium 88 Mcg Tablet (Synthroid) Non Formulary) 88 mcg PO ONE ONE Stop: 03/23/25 16:01 Last Admin: 03/23/25 16:45 Dose: 88 mcg Documented By: GAVIN Miscellaneous (Patient's Weight Needed) 1 each N/A NOW STA Stop: 03/23/25 15:14 Last Admin: 03/23/25 15:58 Dose: 1 each Documented By: GAVIN Ondansetron HCl (Ondansetron Inj 2 Mg/Ml 2 Ml Vial) 4 mg IV NOW STA Stop: 03/23/25 12:23 Last Admin: 03/23/25 12:31 Dose: 4 mg Documented By: luiz Medical Decision Making Laboratory Data 03/23/25 11:34 03/23/25 11:34 Lab Results 03/23/25 03/23/25 Range/Units 11:34 12: WBC 9.87 (4.8-10.8) K/ul RBC 5.23 (4.20-5.40) M/uL Hgb 15.3 (12.0-16.0) g/dL Hct 44.7 (37.0-47.0) % MCV 85.5 (80.0-100.0) fL MCH 29.3 (25.0-34.0) pg MCHC 34.2 (32.0-36.0) g/dL RDW Std Deviation 42.0 (36.4-46.3) fL RDW Coeff of Pérez 13.4 (11.5-14.5) % Plt Count 354 (130-400) K/uL MPV 10.9 (9.4-12.4) fL Immature Gran % (Auto) 0.4 % Neut % (Auto) 81.6 % Lymph % (Auto) 7.2 % [place] % (Auto) 10.3 % Eos % (Auto) 0.3 % Baso % (Auto) 0.2 % Neut # (Auto) 8.05 H (1.40-6.50) K/uL Lymph # (Auto) 0.71 L (1.20-3.40) K/uL [place] # (Auto) 1.02 H (0.11-0.59) K/uL Eos # (Auto) 0.03 (0.00-0.50) K/uL Baso # (Auto) 0.02 (0.00-0.20) K/uL Immature Gran # (Auto) 0.04 (0.01-0.20) K/uL Sodium 137 (136-145) mmol/L Potassium 3.1 L (3.5-5.1) mmol/L Chloride 96 L (98-107) mmol/L Carbon Dioxide 26 (21-32) mmol/L Anion Gap 15 H (3-11) BUN 24 H (6-23) mg/dl Creatinine 0.91 (0.6-1.2) mg/dl Est Cr Clr Drug Dosing Not Reportable eGFR 62.60 BUN/Creatinine Ratio 26.4 H (10-20) Glucose 128 H (70-99(Fasting)) mg/dl Calcium 9.6 (8.6-10.3) mg/dl Magnesium 1.6 L (1.7-2.4) mg/dl Total Bilirubin 0.6 (0.2-1.0) mg/dl AST 13 (13-39) U/L ALT 9 (7-52) U/L Alkaline Phosphatase 64 (34-104) U/L C-Reactive Protein 3.67 H (0-0.5) mg/dl Total Protein 7.3 (6.0-8.3) gm/dl Albumin 4.0 (3.4-5.0) gm/dl Globulin 3.3 (2.5-4.0) gm/dl Albumin/Globulin Ratio 1.2 (0.9-2) Lipase 16 (11-82) U/L SARS-CoV-2 (PCR) NEGATIVE (Negative) Influenza Type A (PCR) Negative (Neg) Influenza Type B (PCR) Negative (Neg) RSV (RT-PCR) Negative (Neg) Imaging Data Radiologist's Impression: Abdomen/Pelvis CT 03/23/25 12:[address] WITH IV CONTRAST CT DOSE: 595.42 mGy.cm HISTORY: upper/mid abd pain, nausea, vomiting TECHNIQUE: Multiaxial CT images of the abdomen and pelvis were performed following the IV administration of 90 cc of Optiray, A dose lowering technique was utilized adhering to the principles of ALARA. COMPARISON STUDY: 08/03/2024 FINDINGS: ABDOMEN: Stable cholecystectomy with stable mild intrahepatic biliary dilatation and mild dilatation of the common bile duct. Otherwise the liver, gallbladder, spleen, pancreas, and right adrenal gland are unremarkable. Stable 1.3 cm left adrenal gland nodule. Kidneys show no hydronephrosis bilaterally. No renal calculi seen. There are scattered atherosclerotic calcifications. No abdominal aortic aneurysm. Pelvis: Uterus is absent. No adnexal mass. Urinary bladder is decompressed. There is extensive sigmoid diverticulosis. No acute diverticulitis. There is dilated small bowel from the proximal to distal jejunum. Distention measures up to 4 cm diameter. Just distal to the distended small bowel beyond the transition zone the small bowel demonstrates wall thickening and inflammation over multiple loops likely of proximal to mid ileum, consistent with enteritis. There is trace ascites. No abscess or free air.. No colonic distention. Osseous structures: Stable severe scoliosis. IMPRESSION: Distal small bowel enteritis causing partial small bowel obstruction. Otherwise as described. ACT 112: Negative or not required by law. The above report was generated using voice recognition software. It may contain grammatical, syntax or spelling errors. Electronically signed by: Jason Torres M.D. 03/23/2025 1:26 PM Chest X-Ray 03/23/25 12:26 XR chest 1V portable CLINICAL HISTORY: nausea, vomiting COMPARISON STUDY: 05/16/2023 FINDINGS: Stable mild cardiomegaly without pulmonary vascular congestion. No consolidation or pleural effusion. No pneumothorax. Stable scoliosis. IMPRESSION: No pneumonia seen. ACT 112: Negative or not required by law. Electronically signed by: Jason Torres M.D. 03/23/2025 1:01 PM MDM Narrative Patient was seen and evaluated as above in room A10. Review was performed of nursing notes and vital signs. I did review pertinent previous visits and patient history. After obtaining a thorough history and physical examination the above work up was performed. Patient presents to us today for evaluation of nausea, abdominal discomfort. EKG per my interpretation: Sinus tachycardia at a rate of 103 bpm. QTc 455. QRS 88. No ST elevation on this rhythm tracing. IV access was established. Labs were drawn. Chest x-ray obtained and was negative for acute process. CT scan abdomen/pelvis as above known distal small bowel enteritis causing partial small bowel obstruction. There is no leukocytosis or concerning anemia. Hypokalemia 3.1. No evidence of emergent kidney or liver failure. Urinalysis without convincing evidence of UTI. Upper respiratory viral panel negative. Patient has an overall benign abdomen. Do not believe she needs NG tube at this time. I do however believe that she would benefit from further evaluation and management in the inpatient setting. Case discussed with the hospitalist service. Please refer to further documentation regarding her stay. In the evaluation and treatment of this patient the following differential diagnoses were entertained: Bowel obstruction, electrolyte disturbance, kidney failure, ACS, among others Impression & Plan Vomiting, Intractable nausea, Partial small bowel obstruction Discharge Plan Visit Data Chief Complaint: Illness Stated Complaint: CAN'T EAT, VOMITING, CAN'T TAKE MEDS, RAPID HEART ED Provider: Shaheen Lucio ED Midlevel Provider: Marc Booth Discharge Problem: Vomiting, Intractable nausea, Partial small bowel obstruction Patient Disposition: Admitted As Inpatient Condition: Good Discharge Instructions Interventions: ED Discharge Assessment Last Done: 03/23/25 15:08
--- NOTE | 2025-03-23 13:02 | XRay Report ---
XR chest 1V portable CLINICAL HISTORY: nausea, vomiting COMPARISON STUDY: 05/16/2023 FINDINGS: Stable mild cardiomegaly without pulmonary vascular congestion. No consolidation or pleural effusion. No pneumothorax. Stable scoliosis. IMPRESSION: No pneumonia seen. ACT 112: Negative or not required by law. Electronically signed by: Jason Torres M.D. 03/23/2025 1:01 PM
[2025-03-23 13:05] LABS: Lipase 16.0 U/L (11-82); Magnesium 1.6 mg/dl (1.7-2.4)
[2025-03-23] MEDS: OPTIRAY 320 100ml IV ONE (13:08)
--- NOTE | 2025-03-23 13:28 | CT Scan Report ---
ABDOMEN AND PELVIS CT WITH IV CONTRAST CT DOSE: 595.42 mGy.cm HISTORY: upper/mid abd pain, nausea, vomiting TECHNIQUE: Multiaxial CT images of the abdomen and pelvis were performed following the IV administrat ion of 90 cc of Optiray, A dose lowering technique was utilized adhering to the principles of ALARA. COMPARISON STUDY: 08/03/2024 FINDINGS: ABDOMEN: Stable cholecystectomy with stable mild intrahepatic biliary dilatation and mild dilatation of the common bile duct. Otherwise the liver, gallbladder, spleen, pancreas, and right adrenal gland are unremarkable. Stable 1.3 cm left adrenal gland nodule. Kidneys show no hydronephrosis bilaterally . No renal calculi seen. There are scattered atherosclerotic calcifications. No abdominal aortic aneu rysm. Pelvis: Uterus is absent. No adnexal mass. Urinary bladder is decompressed. There is extensive sigmoi d diverticulosis. No acute diverticulitis. There is dilated small bowel from the proximal to distal j ejunum. Distention measures up to 4 cm diameter. Just distal to the distended small bowel beyond the transition zone the small bowel demonstrates wall thickening and inflammation over multiple loops lik kennedy of proximal to mid ileum, consistent with enteritis. There is trace ascites. No abscess or free a ir.. No colonic distention. Osseous structures: Stable severe scoliosis. IMPRESSION: Distal small bowel enteritis causing partial small bowel obstruction. Otherwise as descri bed. ACT 112: Negative or not required by law. The above report was generated using voice recognition software. It may contain grammatical, syntax o r spelling errors. Electronically signed by: Jason Torres M.D. 03/23/2025 1:26 PM
[2025-03-23 13:34] LABS: Influenza A virus by PCR Negative (Neg); Influenza B virus by PCR Negative (Neg); SARS CoV2 RNA(COVID-19) Ceph NEGATIVE (Negative)
--- NOTE | 2025-03-23 14:33 | History & Physical Report ---
Date of Service March 23, 2025 Assessment & Plan (1) Intractable nausea: (2) Dehydration: (3) Failure of outpatient treatment: Plan 84 YO pretty much healthy female with PMH of HTN, HLD, H/o Thyroidectomy presented to ED for acute GI sickness as Nausea not responding to oral medication and is not able to eat. She was dehydrated on arrival as per ED, got IV fluid, ZOfran. CT abdomen is reported to have partial SBO. I do not see emerging features of SBO on my exam today. Patient was tachycardic, otherwise stable symptoms endorsing nausea w/o belly distension, vomiting, overt pain when I saw her. I am admitting her for dehydration/ electrolytes management and ongoing work up. I do not think she would need NG tube at her current status. # Intractable Nausea *presented with dehydration with elevated BUN and high anion gap - Infection vs GERD vs other GI issues. - CT AP: Possible partial SBO - Plan: Admit in med/surg tele( pt tachycardic on arrival) NPO, bowel rest LR: 80ml/hr to continue. IV Zofran as needed. IV pantoprazole 40 mg QAM. Labs : CRP, Procal, VBG ordered. I do not think pt need NG tube now. #Electrolyte changes - Hypomagnesemia and Hypokalemia - Supplemented in ED. - Will check morning labs. #Hypertension: Hold home med, BP on softer side, will reassess #Glaucoma: Continue Eye drops, Pt has brought from home. #Hypothyroidism: Continue Levothyroxine if pt tolerates. Dispo: Admit Med/ surg tele Code: Conditional, Initial full code F/B withdraw if needs prolonged support. Herself being retired nurse, she understands consequences. Son is POA, informed of her choice. DVT prophylaxis: SCDs. History of Present Illness Primary Care Provider: Minesh Narvaez MD 84 yo, very pleasant lady, retired nurse( used to work in hospice), PMH significant for HTN, thyroidectomy presented to ED for second time on 03/23 with ongoing nausea and inability to keep food down. She started getting sick on 03/20, day before ericka. Initially she notice some retching and also remembers passing explosive gas the same day, which was her last bowel movement. On that day she threw pronbably no more than 5-10 cc. But it was no blood. She came to ED same day, was given IV fluids and sent home on Zofran. She took Zofran 1 tablet. Since then she has not been able to eat, hard to drink water even. No bowel movement since 03/20. Baseline bowel is everyday for her. No fever, no sick contact, was at home by herself during [place], lives by herself, has a son who lives nearby and is her POA. Has some belly discomfort but not really pain. No h.o GERD. Had been having some tenesmus issue since 6 months, however still had BM once a day She was given IV fluid, antiemetic in ED and was little better when I saw her. Denies black stool, blood in stool, fever, vomiting, belly distension. Drug/ allergy : reviewed Code: Discussed. Allergies Allergy/AdvReac Type Severity Reaction Status Date / Time No Known Allergies Allergy Verified 03/20/25 23:21 Home Medications Medication Instructions Recorded Confirmed Type amlodipine 5 mg tablet (Norvasc) 5 mg PO HS #0 tabs 05/18/23 03/23/25 Rx hydrochlorothiazide 25 mg tablet 25 mg PO QAM #0 tabs 05/18/23 03/23/25 Rx lisinopril 10 mg tablet 10 mg PO QAM #0 tabs 05/18/23 03/23/25 Rx potassium chloride 20 mEq 20 meq PO BID #0 tabs 05/18/23 03/23/25 Rx tablet,extended release(part/cryst) brimonidine 0.2 % eye drops 1 drp OPL TID 08/03/24 03/23/25 History dorzolamide-timolol (PF) 2 %-0.5 % 1 drp OPL BID 08/03/24 03/23/25 History eye drops in a dropperette aspirin 81 mg tablet,delayed 81 mg PO DAILY 03/20/25 03/23/25 History release cholecalciferol (vitamin D3) 25 25 mcg PO DAILY 03/20/25 03/23/25 History mcg (1,000 unit) capsule (Vitamin D3) levothyroxine 88 mcg tablet 88 mcg PO [id number] 03/20/25 03/23/25 History (Synthroid) Past Med/Surg History Problem List (Updated 03/24/25 @ 12:12 by Lori Foley MD) Chronic abdominal pain Partial small bowel obstruction (Acute) Intractable nausea (Acute) Dehydration (Acute) Vomiting (Acute) Failure of outpatient treatment (Acute) Pneumonia (Acute) Medical History HTN (hypertension) Surgical History H/O thyroidectomy Social History Smoking Status: Former smoker Tobacco Type: Cigarettes Second Hand Exposure: Yes; Do You Dip or Chew Tobacco: No; Hx Alcohol Use: No Hx Substance Use: No Preferred Language: Samoan Communication Ability: Effective Director Of People Required: No Beliefs That Will Affect Care: None Current Living Situation: Alone Feels Safe at Home: Yes Assistive Devices: None Review of Systems Review of Systems: As per HPI Physical Exam Physical Exam: Constitutional: Well appearing, No acute distress HEENT: Atraumatic, Normocephalic, No conjunctival injection CVS: S1 S2 no murmur, Regular Rhythm, no LE edema Respiratory: BL equal air entry with NVBS. No rhonchi, wheezes, or crackles. No increased work of breathing GI: Soft, Nondistended, Nontender. MSK: No gross deformities noted Skin: Warm, Dry, No rashes Neuro: Alert, Oriented to TPP, No Focal deficit Psych: Mood and Affect congruent, Cooperative on exam Results & Data Results & Data Vital Signs (Past 12 Hours) Vital Signs Temp Pulse Pulse Resp BP BP Pulse Ox 03/23/25 12:21 103 H 18 116/71 97 03/23/25 12:12 78 16 116/74 98 03/23/25 11:23 36.8 C 112 H 20 152/83 H 94 O2 Del Method 03/23/25 12:21 Room Air 03/23/25 12:12 03/23/25 11:23 Room Air Supervising Physician Co-Signing Physician Notes During face to face encounter, I obtained a history and physical examination, discussed plan of care with patient and answered any questions. I discussed plan of care with Dr. Foley. I reviewed above note and agree with it except for the following: Patient will be admitted for inability to take intake accompanied by nausea. Given her current state and age, patient will be admitted with IVF. WIll closely monitor patient. WIll hold BP meds for now Resident Activity Tracking Resident Involvement: Resident Care Provided Care Provided: Adult Hospital Medicine
[2025-03-23 15:00] LABS: Appearance Urine Clear (Clear); Glucose Urine UA Negative (Negative)
[2025-03-23] MEDS ORDERED: ACETAMINOPHEN 325 MG TAB PO PRN (15:07)
[2025-03-23] MEDS ORDERED: MELATONIN 3 MG TAB PO PRN (15:07)
[2025-03-23 15:23] LABS: Base Excess VBG 6.1 mEq/L; HCO3 VBG 30 mmol/L; Oxygen Saturation VBG 89.4 %; PCO2 VBG 38 mmHg (38-50); PO2 VBG 54 mmHg; pH VBG 7.50 (7.36-7.41)
[2025-03-23] MEDS: ONDANSETRON INJ 2 MG/ML 2 ML VIAL IV PRN (15:40)
[2025-03-23] MEDS ORDERED: LEVOTHYROXINE SODIUM 88 MCG TABLET PO ONE (15:45)
[2025-03-23] MEDS: LACTATED RINGER'S 1,000 ML IV SCH (16:03)
[2025-03-23] MEDS: PANTOprazole 40 MG/10 ML SYR IV SCH (16:07)
[2025-03-23] MEDS: MAGNESIUM SULFATE / D5W 1 GM/100 ML BAG IV SCH (17:22)
[2025-03-23] MEDS: PROCHLORPERAZINE 10 MG in SYRINGE 8 ML IV PRN (21:35)
[2025-03-24 06:24] LABS: Hematocrit (blood only) 36.2 % (37.0-47.0); Hemoglobin 12.4 g/dL (12.0-16.0); Immature Granulocytes # (auto) 0.03 K/uL (0.01-0.20); Immature Granulocytes % (auto) 0.4 %; Mean Corpuscular Hemoglobin 29.5 pg (25.0-34.0); Mean Corpuscular Volume 86.0 fL (80.0-100.0); Platelet Count 292 K/uL (130-400); RDW Standard Deviation 42.1 fL (36.4-46.3); Red Blood Count 4.21 M/uL (4.20-5.40); White Blood Count 6.89 K/ul (4.8-10.8)
--- NOTE | 2025-03-24 07:09 | Hospitalist Progress Note ---
Date of Service March 24, 2025 Assessment & Plan (1) Intractable nausea: (2) Dehydration: (3) Failure of outpatient treatment: (4) Chronic abdominal pain: Plan 84 YO pretty much healthy female with PMH of HTN, HLD, H/o Thyroidectomy presented to ED for acute GI sickness as Nausea not responding to oral medication and is not able to eat. She was dehydrated on arrival as per ED, got IV fluid, ZOfran. CT abdomen is reported to have partial SBO, w/o emerging features of SBO on my exam. She is admitted her for dehydration/ electrolytes management and ongoing work up Patient vomited last night, getting out all of what she ate last morning. # Intractable Nausea/ vomiting *presented with dehydration with elevated BUN and high anion gap - Infection vs GERD vs other GI issues. - CT AP: Possible partial SBO with enteritis multiple sigmoid diverticulosis w/o diverticulitis. - CRP mildly elevated 3s, Procal reassuring. - Plan: Continue NPO, bowel rest LR: 80ml/hr to continue. Continue IV Zofran/ Compazine as needed. Continue IV pantoprazole 40 mg QAM I do not think pt need NG tube now. #Chronic abdominal pain - Opening up history, pt mentions having chronic abdomen pain starting from last 6 moths, which is new to her. - And suddenly symptoms worsened, presented as intractable nausea and appetite change. - This would make me feel if she has any ischemia in her mesentery, I am planning for Mesenteric angiogram, however as she got contrast on #Electrolyte changes - Hypomagnesemia and Hypokalemia - Supplementation ongoing. - Will check morning labs. #Hypertension: Hold home med, BP on softer side, will reassess #Glaucoma: Continue Eye drops, Pt has brought from home. #Hypothyroidism: Continue Levothyroxine if pt tolerates. Dispo: Pending Stabilization Code: Conditional, Initial full code F/B withdraw if needs prolonged support. 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 DVT prophylaxis: SCDs. Admission and Anticipated Discharge Date Admission Date: March 23, 2025 Supervising Physician Co-Signing Physician Notes During face to face encounter, I obtained a history and physical examination, discussed plan of care with patient and answered any questions. I discussed plan of care with Dr. Foley. I reviewed above note and agree with it except for the following: Patient will be admitted for inability to take intake accompanied by nausea. Given her current state and age, patient will be treated with IVF. WIll closely monitor patient. Patient is slowly improving. 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 She mentioned she had vomiting yesterday evening. She threw up everything she ate yesterday morning. It was oatmeal from early meaning She felt like it was just sitting there in her belly and was not going down. She felt very comfortable after vomiting. Remains NPO, no overnight vomiting after this evening episode. Little lower belly discomfort but no acute obvious pain, no distension. No bowel movement yet. Last bowel movement was on 03/20/2025. She has passed lot of gas on last BM and then she has not has one. No blood in stool. Gives h/o some rectal irritation remotely, when she noticed some blood in poop, but not recent bleeding. Review of Systems Review of Systems: As per HPI Physical Exam Physical Exam: Constitutional: Well appearing, No acute distress, O2 via NC 1L ongoing. HEENT: Atraumatic, Normocephalic, No conjunctival injection CVS: S1 S2 no murmur, Regular Rhythm, no LE edema Respiratory: BL equal air entry with NVBS. No rhonchi, wheezes, or crackles. No increased work of breathing GI: Soft, Nondistended, Nontender. MSK: No gross deformities noted Skin: Warm, Dry, No rashes Neuro: Alert, Oriented to TPP, No Focal deficit Psych: Mood and Affect congruent, Cooperative on exam Results & Data Results & Data Vital Signs (Past 12 Hours) Vital Signs Temp Pulse Pulse Pulse Resp BP BP 03/24/25 04:17 36.8 C 65 16 119/73 03/23/25 22:47 80 03/23/25 22:39 36.6 C 80 18 163/91 H 03/23/25 20:00 88 21 146/85 H Pulse Ox O2 Del Method O2 Flow Rate 03/24/25 04:17 96 Nasal Cannula 1 03/23/25 22:47 03/23/25 22:39 95 Nasal Cannula 1 03/23/25 20:00 93 Nasal Cannula 1 Resident Activity Tracking Resident Involvement: Resident Care Provided Care Provided: Adult Hospital Medicine
[2025-03-24 07:10] LABS: Alanine Aminotransferase 7.0 U/L (7-52); Albumin Globulin Ratio 1.3 (0.9-2); Albumin Level 3.1 gm/dl (3.4-5.0); Alkaline Phosphatase 47.0 U/L (34-104); Anion Gap 8.0 (3-11); Bilirubin,Total 0.6 mg/dl (0.2-1.0); Blood Urea Nitrogen 19.0 mg/dl (6-23); Calcium 8.4 mg/dl (8.6-10.3); Carbon Dioxide 28.0 mmol/L (21-32); Chloride 101.0 mmol/L (98-107); Creatinine Clr Calc Pharmacy 38.8 ml/min; Globulin 2.4 gm/dl (2.5-4.0); Magnesium 2.1 mg/dl (1.7-2.4); Potassium 3.2 mmol/L (3.5-5.1); Sodium 137.0 mmol/L (136-145); Total Protein 5.5 gm/dl (6.0-8.3)
[2025-03-24] MEDS: POTASSIUM CHLORIDE / WTR 10 MEQ/100 ML PLCT IV SCH (07:37)
[2025-03-24] MEDS: ASPIRIN 81 MG ECTAB PO SCH (08:41)
[2025-03-24] MEDS: hydroCHLOROthiazide 25 MG TAB PO SCH (08:41)
[2025-03-24 12:04] LABS: Cholesterol 114.0 mg/dl (0-200); HDL Cholesterol 32.0 mg/dl; Triglycerides 92.0 mg/dl (0-150)
[2025-03-24] MEDS: POTASSIUM CHLORIDE CRTAB 20 MEQ TABCR PO STA (15:59)
[2025-03-24 19:59] LABS: Adenovirus F 40/41 PCR Not Detected (NotDetected); Campylobacter PCR Not Detected (NotDetected); Enteroaggregative E.coli(EAEC) Not Detected (NotDetected); Shiga-like Toxin E.coli (STEC) Not Detected (NotDetected); Vibrio species PCR Not Detected (NotDetected)
[2025-03-25 07:44] VITALS: RESP 18
[2025-03-25] MEDS: OPTIRAY 320 125ml IV ONE (07:59)
--- NOTE | 2025-03-25 09:19 | CT Scan Report ---
CT angio abdomen pelvis w con CLINICAL HISTORY: 84 years-old Female with Looks for Menesteric vessels/ Ischemia acute mid abdom inal pain COMPARISON STUDY: CT abdomen and pelvis 1227 and 25, 08/03/2024 TECHNIQUE: Following the IV administration of 118 cc of Optiray, CT angiogram of the abdomen and pelv is was performed from the lung bases the proximal femora. Images are reviewed in the axial, sagittal, and coronal planes. 3-D MIPS images are created and assessed. All measurements were obtained accordi ng to NASCET criteria. IV contrast was administered without complication. A dose lowering technique was utilized adhering to the principles of ALARA. CT DOSE: 612.33 mGy.cm FINDINGS: CTA: Heart is upper limits of normal in size. Trace pericardial effusion. Descending thoracic aortic tortuosity with moderate atherosclerosis. There is additional moderate to extensive atherosclerosis o f the abdominal aorta without aneurysm or dissection. The iliac arteries are patent and normal in avani iber. The imaged femoral arteries appear patent. There is approximately 50% stenosis at the origin of the celiac trunk secondary to atherosclerosis. The superior mesenteric artery it is widely patent. A therosclerosis at the origin of the inferior mesenteric artery causes moderate stenosis. The left rebekah al artery is patent. Atherosclerosis at the origin of the right renal artery causes approximately 50% stenosis. There is a 7 x 5 mm right renal artery aneurysm on image 88 series [address] ABDOMEN AND PELVIS: Trace right pleural effusion. There is no pneumatosis or pneumoperitoneum iden tified. Unremarkable spleen, pancreas and right adrenal gland. Nodular thickening of the left adrenal gland is unchanged measuring up to approximately 1.3 cm, likely benign. Cholecystectomy. Intrahepati c and extrahepatic biliary ductal dilation as a chronic finding and likely on a postsurgical basis. T he common bile duct measures up to 11 mm transversely. No liver lesion identified. No hydronephrosis or suspicious renal lesion identified. Decompressed bladder with mild wall thickeni ng. The uterus appears to be surgically absent. No lymphadenopathy identified. Trace abdominal pelvic ascites again noted. Colonic diverticulosis. Possible trace inflammatory stranding adjacent to the m id descending colon again noted. A noninflamed diverticulum partially extends into a small fat filled left inguinal hernia. Large and small bowel air-fluid levels are again noted. Several loops of ileal wall thickening improved from prior. Mild small bowel distention measuring up to 3.1 cm, previously 3.5 cm. No discrete transition point. No CT evidence of acute appendicitis. Unremarkable soft tissues . No acute fracture. Degenerative changes of the spine, pelvis and hips with sigmoidal thoracolumbar scoliosis. IMPRESSION: 1. CTA on the exam demonstrates no dissection, high-grade stenosis or arterial occlusion. 2. Fluid-filled loops of large and small bowel with decreased small bowel distention and wall thicken ing compared to 03/23/2025 is suggestive of a persistent enteritis with diarrheal illness. A low-grad e bowel obstruction considered less likely. 3. Colonic diverticulosis with equivocal mild acute diverticulitis of the descending colon. 4. 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 5. Trace right pleural effusion with trace abdominal pelvic ascites redemonstrated. 6. Additional findings as above. ACT 112: Negative or not required by law. The above report was generated using voice recognition software. It may contain grammatical, syntax o r spelling errors. Electronically signed by: Chente Quintero M.D. 03/25/2025 9:18 AM
--- NOTE | 2025-03-25 11:03 | Electrocardiogram Report ---
Test Reason : Blood Pressure : */* mmHG Vent. Rate : 103 BPM Atrial Rate : 103 BPM P-R Int : 174 ms QRS Dur : 88 ms QT Int : 348 ms P-R-T Axes : 45 6 29 degrees QTcB Int : 455 ms Sinus tachycardia Nonspecific ST and T wave abnormality Abnormal ECG When compared with ECG of 03-Aug-2024 13:08, Vent. rate has increased by 39 bpm Nonspecific T wave abnormality, improved in Anterior leads Nonspecific T wave abnormality now evident in Lateral leads Confirmed by Hailee Tillman (Madai) on 03/25/2025 11:02:56 AM Referred By: REFERRED SELF Confirmed By: Hailee Tillman
[2025-03-25 11:41] VITALS: BP 126/78; TEMP 98.1; O2SAT 93
[2025-03-25] MEDS: POTASSIUM CHLORIDE CRTAB 20 MEQ TABCR PO STA (14:19)
[2025-03-25 14:35] VITALS: PULSE 95
--- NOTE | 2025-03-25 14:36 | Discharge Summary ---
Discharge Summary Date of Service March 25, 2025 Principal Dx & Hospital Course #1 = Principal Diagnosis (1) Intractable nausea: (2) Dehydration: (3) Failure of outpatient treatment: (4) Chronic abdominal pain: Plan 84 YO pretty much healthy female with PMH of HTN, HLD, H/o Thyroidectomy presented to ED for acute GI sickness as Nausea not responding to oral medication and is not able to eat. She was dehydrated on arrival as per ED, got IV fluid, ZOfran. CT abdomen is reported to have partial SBO, w/o emerging features of SBO on my exam. She is admitted her for dehydration/ electrolytes management and ongoing work up Patient vomited last night, getting out all of what she ate last morning. # Intractable Nausea/ vomiting *presented with dehydration with elevated BUN and high anion gap - Infection vs GERD vs other GI issues. - CT AP: Possible partial SBO with enteritis multiple sigmoid diverticulosis w/o diverticulitis. - CRP mildly elevated 3s, Procal reassuring. - Plan: improved with bowel rest and LR: 80ml/hr now tolerating diet and having BM. Patient reports feeling well enough for discharge ; will discharge patient #Chronic abdominal pain - Opening up history, pt mentions having chronic abdomen pain starting from last 6 moths, which is new to her. - And suddenly symptoms worsened, presented as intractable nausea and appetite change. -CTA of abd/pelvis negative #Electrolyte changes - Hypomagnesemia and Hypokalemia - replenished #hypertension: resume home meds #Glaucoma: Continue Eye drops, Pt has brought from home. #Hypothyroidism: Continue Levothyroxine if pt tolerates. Admission HPI Per Admitting Provider 84 yo, very pleasant lady, retired nurse( used to work in hospice), PMH significant for HTN, thyroidectomy presented to ED for second time on 03/23 with ongoing nausea and inability to keep food down. She started getting sick on 03/20, day before beau. Initially she notice some retching and also remembers passing explosive gas the same day, which was her last bowel movement. On that day she threw pronbably no more than 5-10 cc. But it was no blood. She came to ED same day, was given IV fluids and sent home on Zofran. She took Zofran 1 tablet. Since then she has not been able to eat, hard to drink water even. No bowel movement since 03/20. Baseline bowel is everyday for her. No fever, no sick contact, was at home by herself during [place], lives by herself, has a son who lives nearby and is her POA. Has some belly discomfort but not really pain. No h.o GERD. Had been having some tenesmus issue since 6 months, however still had BM once a day She was given IV fluid, antiemetic in ED and was little better when I saw her. Denies black stool, blood in stool, fever, vomiting, belly distension. Drug/ allergy : reviewed Code: Discussed. Discharge Exam Constitutional WD/WN, vitals as above Neck trachea midline, no thyromegaly Respiratory normal respiratory effort, lungs clear to auscultation Cardiovascular RRR, no murmur, no edema Gastrointestinal (Abdomen) normal bowel sounds, soft, nontender, no hepatosplenomegaly Discharge Plan Discharge Items Patient Disposition: Home - Self-Care Reason For Visit: VOMITING Discharge Diagnosis: vomiting Condition on Discharge: Good Activity: Resume your previous activity Non-emergency contact: Primary Care Provider Call non-emergency contact if: you have any medication questions Follow-up/Referrals: Minesh Narvaez MD [Primary Care Provider] - (Please make a follow up appointment with your primary care physician in 1-2 weeks.) Diet: Clear liquid Addtl Attending Provider Instructions: Recommend slowly advancing your diet. This appears to be a viral illness. Thankfully, you have been slowly improving. I anticipate this will continue at home. Please return if you are unable to tolerate oral intake. Recommend followup with your PCP in 7-14 days. Pending Studies at Discharge: No Stand-Alone Forms: My [facility] i[facility]ices, Smoking Cessation Medications and DC Order Prescriptions: Continued brimonidine 0.2 % drops 1 drp OPL TID dorzolamide-timolol (PF) 2-0.5 % dropperette 1 drp OPL BID amlodipine [Norvasc] 5 mg Tablet 5 mg PO HS Qty: 0 0RF potassium chloride 20 mEq Tablet,Er Particles/Crystals 20 meq PO BID Qty: 0 0RF lisinopril 10 mg Tablet 10 mg PO QAM Qty: 0 0RF hydrochlorothiazide 25 mg Tablet 25 mg PO QAM Qty: 0 0RF aspirin 81 mg Tablet,Delayed Release (Dr/Ec) 81 mg PO DAILY cholecalciferol (vitamin D3) [Vitamin D3] 25 mcg (1,000 unit) Capsule 25 mcg PO DAILY levothyroxine [Synthroid] 88 mcg tablet 88 mcg PO [id number] Rx Instructions: BRAND NAME NECESSARY SKIPS SUNDAYS. Discharge Orders: Discharge Order (Routine); Ordered 03/25/25 Ordered By: Shahram Palacios/Other Patient Handouts: Small Bowel Obstruction, ED Gastroenteritis, Noninfectious Admission Data Admit Date/Time: 03/23/25 14:10 Attending Provider: Shahram Concepcion Admit Provider: Lori Foley Primary Care Provider: Minesh Narvaez Other Providers: Shahram Concepcion Other Interventions: Discharge Summary Assessment (RN) Last Done: 03/25/25 14:46 Hospital Stay Data Consultations 03/23/25 14:06 ED Decision to Admit Stat Diagnostic Imagining Performed 03/23/25 12:26 CT abd pelvis IV con only Stat 03/25/25 08:00 CT angio abdomen pelvis w con Routine Pending Results Patient Have Any Pending Studies at Discharge: No Discharge Instructions Given to Patient (Per Discharging Provider) Recommend slowly advancing your diet. This appears to be a viral illness. Thankfully, you have been slowly improving. I anticipate this will continue at home. Please return if you are unable to tolerate oral intake. Recommend followup with your PCP in 7-14 days. Total Time Total Time Spent Total Time Spent (In Minutes): 32 Spent over 30 minutes, this included patient encounter, formulating discharge plan, writing discharge instructions, discussing with case management. Coding Level of Care Code 93263 INP/OBS DISCH >30 MIN Diagnoses Intractable nausea R11.0 Dehydration E86.0 Failure of outpatient treatment Z78.9 Chronic abdominal pain R10.9; G89.29
[2025-03-25] MEDS ORDERED: POTASSIUM CHLORIDE CRTAB 20 MEQ TABCR PO SCH (21:00)
--- NOTE | 2025-03-30 13:34 | Billing Data ---
Date of Service March 23, 2025 Coding Level of Care Code 59878 INT INP/OBS CARE
--- NOTE | 2025-03-31 10:28 | Billing Data ---
Date of Service March 24, 2025 Coding Level of Care Code 93342 SUB INP/OBS CARE
--- NOTE | 2025-05-15 13:57 | Coding Query ---
A supporting diagnosis is required for the test/procedure performed on this patient in order for us to be reimbursed by the patient's insurance. Please provide a supporting diagnosis for the following test/procedure listed below next to the test name. *If there is no additional diagnosis for this patient that would support the following test/procedure please document that below next to the test/procedure. Test that requires a supporting diagnosis: * 62446 Gastrointestinal Pathogen DIAGNOSIS: Thank you Marilia [facility] Information Management Once completed, please kindly fax back to [phone] For questions please call [phone] [facility]
== END 2025-03-25 15:41 | disposition home or self-care (01) ==
LOC: ED 10:57 → INTOOBSV 14:10 → EDINP 14:10 → 2N 15:08